=== PATIENT | male | born 1985 | race African-American/Black ===

== ENCOUNTER 2018-07-29 20:50 | Emergency (ER) | payer OTHER, SELFPAY ==
[2018-07-29 20:56] VITALS: BP 133/84; PULSE 82; RESP 14; TEMP 36.7; O2SAT 97
--- NOTE | 2018-07-29 22:15 | PC.NURSE ---
Pt was seen 2 days ago for same sx,sent home early yesterday morning with Rx for zofran. Pt dropped at pharmacy but they said it would be a couple of hours. He left and forgot to pick it up as his sx had not returned. Pt vomited x1 today with many episodes of diarrhea. Pt traveled on plane 2 days ago from [place]
--- NOTE | 2018-07-29 22:33 | ED.NAVMDI ---
HPI - Nausea/Vomiting/Diarrhea General Chief complaint: Nausea/Vomiting/Diarrhea Stated complaint: ABD PAIN Time Seen by Provider: 07/29/18 22:12 Source: patient Mode of arrival: ambulatory Limitations: no limitations History of Present Illness HPI Narrative: 32-year-old male, nonsmoker presents with a chief complaint of nausea vomiting and diarrhea for the past few days. He is otherwise healthy and states he started getting symptoms about 3 hr after having some airport seafood, while flying back to [place]. Upon landing he went to the closest emergency department and had a very thorough workup including labs and imaging. There were no significant findings and patient was discharged home with a prescription for Zofran. He has had no fever or chills. He denies international travel. He denies the use of recent antibiotics. His fiancee had similar symptoms a few weeks ago but had resolved. He continues to have nausea and has vomited once or twice today. He denies pain. MD complaint: nausea, vomiting and diarrhea Onset (ago): day(s) Description of Vomiting: food contents and watery Description of Diarrhea: watery Associated Abdominal Pain: No Related Data Previous Rx's Medication Instructions Recorded ondansetron 4 mg PO TID-QID PRN #10 tab 07/29/18 Allergies Allergy/AdvReac Type Severity Reaction Status Date / Time No Known Drug Allergies Allergy Verified 07/29/18 21:00 Review of Systems Constitutional Denies chills, Denies fever(s), Denies lethargy and Denies weakness Eyes Denies change in vision, Denies eye discharge, Denies irritation and Denies loss of vision ENT Ears, Nose, Mouth, and Throat: Denies change in voice, Denies neck pain and Denies sore throat Cardiovascular Denies chest pain, Denies irregular heart rhythm, Denies lightheadedness, Denies palpitations, Denies dyspnea, Denies dyspnea on exertion and Denies orthopnea Respiratory Denies cough, Denies dyspnea, Denies dyspnea on exertion and Denies wheezing Gastrointestinal Gastrointestinal: Denies abdominal pain, Denies change in bowel habits, Reports diarrhea, Reports nausea and Reports vomiting Genitourinary Denies hematuria, Denies flank pain, Denies urinary incontinence and Denies urinary urgency Musculoskeletal Denies neck pain Integumentary/Breasts Denies pruritus, Denies erythema, Denies rash and Denies wounds Neurologic Denies confusion, Denies loss of vision and Denies weakness Psychiatric Denies anxiety, Denies confusion, Denies depression, Denies homicidal ideation and Denies suicidal ideation Endocrine Denies palpitations Hematologic/Lymphatic Denies easy bruising Allergic/Immunologic Denies wheezing [facility] Social History Smoking Status: Never smoker Exam Narrative Exam Narrative: GEN: AOx3 and in mild distress EYES: Pupils are equal, round, and reactive to light and accommodation. Extraoccular muscles are intact bilaterally. There is no subconjunctival hemorrhage or exudate. CHEST: Lungs are clear to auscultation bilaterally and free of wheezes, rales, or rhonchi. Heart rate is regular rhythm, there are no murmurs, clicks, rubs, or gallops. There is no chest wall tenderness. ABD: Abdomen is soft and nontender. There is no guarding or rebound. Bowel sounds are normal in all 4 quadrants. There is no mass or organomegaly. EXT: Full painless ROM of all extremities with no loss of sensation or strength. SKIN: Warm, pink, and dry. No erythema or rash Initial Vital Signs Initial Vital Signs: Vital Signs Temperature 98.0 F 07/29/18 20:56 Pulse Rate 82 07/29/18 20:56 Respiratory Rate 14 07/29/18 20:56 Blood Pressure 133/84 07/29/18 20:56 Pulse Oximetry 97 07/29/18 20:56 Course Orders Ordered: ED Orders 07/29/18 22:04 Urine Microscopic Stat Discontinued Medications Ondansetron HCl (Zofran Odt Prepack) 1 bottle MISC SEEINSTR ONE Stop: 07/29/18 22:44 Last Admin: 07/29/18 22:48 Dose: 1 bottle Vital Signs - 8 hr 07/29/18 20:56 07/29/18 23:57 Temperature 98.0 F Pulse Rate 82 75 Respiratory Rate 14 Blood Pressure 133/84 133/82 Pulse Oximetry 97 97 MDM - Nausea/Vomiting/Diarrhea Differential Diagnosis Likely traveler's diarrhea, food poisoning, gastroenteritis, clostridium difficile infection, drug-induced nausea and vomiting and dehydration Lab Data Attestation: I reviewed the patient's lab results. Lab Results 07/29/18 Range/Units 22:04 Urine RBC None seen (0-5/HPF) Urine WBC None seen (0-5/HPF) Ur Squamous Epith Cells None seen Amorphous Sediment 4+ Urine Bacteria None seen (None) Ur Culture Indicated? Cult not indicated Urine Dip Bedside Urine Glucose Negative Bedside Urine Bilirubin - Negative Bedside Urine Ketone - Negative Urine Specific [place] 1.015 Bedside Urine Occult Blood - Negative Bedside Urine pH 7.0 Bedside Urine Protein +/- 15 Bedside Urine Urobilinogen 1+ 2mg Bedside Urine Nitrite - Negative Bedside Urine Leukocytes - Negative Esterase MDM Narrative Medical decision making narrative: healthy patient with normal vitals and minimal symptoms presents. Recent large workup is unremarkable. No risk for serious underlying cause of N/V/D. Tolerates oral challenge after Zofran. refuses repeat labs Discharge Plan Departure Patient Disposition: Home Clinical Impression: Diarrhea, Vomiting Discharge Date/Time: 07/29/18 23:57 Interventions: ED Discharge Assessment Last Done: 07/29/18 23:57 Instructions: Diarrhea Activity Restrictions/Additional Instructions: 1. Drink plenty of fluids with frequent small sips. 2. For the next 24 hours a clear liquid diet is advised. After that please employ a brat diet which would include bananas, rice, apples, toast. 3. Please take medications as directed. 4. Please follow-up with your doctor in the next 1-2 days. Call the office for an appointment. 5. Please return to the emergency Department for any worsening or persistent symptoms, such as increasing pain or fever. Prescriptions: New ondansetron 4 mg tablet,disintegrating 4 mg PO TID-QID PRN (Reason: nausea and vomiting) Qty: 10 RF: 0 Stand Alone Forms: Work Release Note
[2018-07-29 22:35] LABS: Bacteria Urine None Seen; RBC Urine None Seen (0-5/HPF); WBC Urine None Seen (0-5/HPF)
[2018-07-29 22:48] LABS: Squamous Epithelial Cell Urine None Seen
[2018-07-29] MEDS: ONDANSETRON 4 MG ODT PREPACK 1 BOTTLE MISC (22:48)
[2018-07-29 22:49] LABS: Amorphous Sediment Urine 4+; Culture Indicated Urine Cult Not Indicated
[2018-07-29 23:57] VITALS: BP 133/82; PULSE 75; O2SAT 97
== END 2018-07-29 23:57 | disposition home or self-care (01) ==
PROVIDERS: Emergency Provider Emergency Medicine; Family Provider General Practice; PCP General Practice
DX: R11.10 Vomiting, unspecified (principal); R19.7 Diarrhea, unspecified
CPT/HCPCS: 81003; 81015; 99282; 99283